=== PATIENT | female | born 1960 | race Caucasian/White ===

== ENCOUNTER 2019-09-18 15:10 | Outpatient (CLI) | payer BC, SELFPAY ==
[2019-09-18 15:31] LABS: Bilirubin Negative (Negative); Blood Trace-intact (Negative); Clarity Cloudy (Clear); Glucose Negative (Negative); Ketones Negative (Negative); Leukocyte Esterase Small (Negative); Nitrite Positive (Negative); Urobilinogen 0.2 EU/dL (Up TO 0.2); pH 6.5 (5-8)
[2019-09-18 15:44] LABS: Bacteria Many HPF (Negative); C & S Indicated? Yes; Casts Negative LPF (Negative); Crystals Negative HPF (Negative); Epithelial Cells Few HPF (Negative); Mucus Trace (Negative); WBC >50 HPF (0-5)
== END 2019-09-18 15:30 ==
PROVIDERS: PCP Specialist/Technologist Athletic Trainer; Visit Provider Nurse Practitioner Family
DX: N39.0 Urinary tract infection, site not specified (principal)
CPT/HCPCS: 87077; 81003; 81015; 87086; 87186

== ENCOUNTER 2020-12-05 15:09 | Outpatient (REF) | payer BC, SELFPAY ==
[2020-12-05 15:44] LABS: Anion Gap 9.6 mmol/L (3-11); BUN 15 mg/dL (7-18); CO2 26.4 mmol/L (21.0-32.0); CREATININE 0.8 mg/dL (0.55-1.02); Calcium 9.1 mg/dL (8.5-10.1); Calculated LDL 131 mg/dL (<100); Chloride 105 mmol/L (98-107); Cholesterol 201 mg/dL (<200); Glucose 95 mg/dL (74-106); HDL Cholesterol 59 mg/dL (40-60); Potassium 4.3 mmol/L (3.5-5.1); Sodium 141 mmol/L (136-145); Triglyceride 59 mg/dL (<150)
== END 2020-12-05 15:10 | disposition home or self-care (01) ==
LOC: NCHCN 15:09
PROVIDERS: PCP Specialist/Technologist Athletic Trainer; Visit Provider Nurse Practitioner Family
DX: Z00.00 Encounter for general adult medical examination without abnormal findings (principal); I10 Essential (primary) hypertension
CPT/HCPCS: 80048; 80061

== ENCOUNTER → 2022-09-30 01:56 | Outpatient (CLI) | payer BC, SELFPAY ==
--- NOTE | 2022-09-30 08:30 | DI.MAMMO_ITS ---
Exam(s) MAMMO SCREENING EXAM: MAMMO SCREENING CLINICAL HISTORY: SCREENING, Z12.31 TECHNIQUE: Bilateral full field digital CC and MLO mammographic images were obtained with 3D tomosyn thesis and utilizing computer aided detection (CAD). COMPARISON: Available for comparison. FINDINGS: Masses/Architectural Distortion: None seen. Microcalcifications: No suspicious pleomorphic-type are seen. Skin Thickening/Nipple Retraction: None. IMPRESSION: 1. No significant interval change with no specific features of malignancy noted. 2. Unless there is more urgent need, screening mammography is recommended, as per [employer] guidelines. BI-RADS Category 1 - Negative Breast Density - Category B - Scattered areas of fibroglandular density Breast density category C or D implies that the patient has dense breast tissue. Dense breast tissue is very common and is not abnormal but dense breast tissue can make it harder to find cancer on a ma mmogram. Also, dense breast tissue may increase their breast cancer risk. This information about the result of the mammogram report was provided to the patient to raise their awareness. Use this report when you speak with the patient about their risks for breast cancer, which includes their family hist ory. At that time, you may recommend for more screening tests (Ultrasound or MRI) as they might be us eful based on their risk. A negative radiographic report should not delay biopsy if a dominant or clinically suspicious mass is present. Up to ten percent of cancers are not identified on mammography. A negative report may reinforce clinical impression. Adenosis and dense breasts may obscure an underlying neoplasm. False positive reports average 6 to 10%. Patient will receive a letter notifying them of these results.
== END ==
PROVIDERS: PCP Specialist/Technologist Athletic Trainer; Visit Provider Nurse Practitioner Family
DX: Z12.31 Encounter for screening mammogram for malignant neoplasm of breast (principal)
CPT/HCPCS: 77063; 77067

== ENCOUNTER 2023-05-30 15:29 | Outpatient (REF) | payer BC, SELFPAY ==
[2023-05-31 14:28] LABS: HCT 38.9 % (36.0-46.0); HGB 13.4 g/dL (11.2-15.7); MCH 29.3 pg (27.0-33.0); MCHC 34.4 % (32.0-36.0); MCV 85 fL (80-95); MPV 10.8 fL (8.0-11.0); Platelet Count 238 10^3/uL (130-400); RBC 4.58 10^6/uL (3.93-5.22); RDW 13.9 % (11.7-14.6); RDW-SD 42.6 fL; WBC 6.53 10^3/uL (4.4-10.8)
[2023-05-31 14:44] LABS: ALT 36 U/L (14-59); AST 18 U/L (15-37); Albumin 3.9 g/dL (3.4-5.0); Alkaline Phosphatase 60 U/L (46-116); Anion Gap 5.3 mmol/L (3-11); BUN 18 mg/dL (7-18); Bilirubin, Total 0.4 mg/dL (0.2-1.0); CO2 29.7 mmol/L (21.0-32.0); CREATININE 0.8 mg/dL (0.55-1.02); Calcium 9.2 mg/dL (8.5-10.1); Calculated LDL 136 mg/dL (<100); Chloride 104 mmol/L (98-107); Cholesterol 214 mg/dL (<200); Estimated GFR 82.23 (mL/min/1.73m2); Glucose 95 mg/dL (74-106); HDL Cholesterol 68 mg/dL (40-60); Potassium 4.2 mmol/L (3.5-5.1); Sodium 139 mmol/L (136-145); Total Protein 6.8 g/dL (6.4-8.2); Triglyceride 53 mg/dL (<150)
== END 2023-05-30 15:30 | disposition home or self-care (01) ==
LOC: NCHCN 15:29
PROVIDERS: PCP Family Medicine; Visit Provider Family Medicine
DX: R10.31 Right lower quadrant pain (principal); R81 Glycosuria; I10 Essential (primary) hypertension; E78.2 Mixed hyperlipidemia; R82.79 Other abnormal findings on microbiological examination of urine
CPT/HCPCS: 80053; 80061; 85027; 83036; 87086

== ENCOUNTER 2023-07-22 19:28 | Outpatient (REF) | payer BC, SELFPAY ==
[2023-07-22 21:25] LABS: COVID-19 PCR Negative (Negative)
[2023-07-22 21:49] LABS: Source Nasal/Nares
== END 2023-07-22 19:29 | disposition home or self-care (01) ==
LOC: LBN 19:28
PROVIDERS: PCP Family Medicine; Visit Provider Physician Assistant Medical
DX: Z20.822 Contact with and (suspected) exposure to COVID-19 (principal); R05.8 Other specified cough
CPT/HCPCS: 87635

== ENCOUNTER 2024-06-07 08:31 | Outpatient (REF) | payer OTHER, SELFPAY ==
--- OUTSIDE RECORDS SUMMARY | 2024-06-07 08:38 | XMS_ITS | Encounter Summary ---
Author Organization [facility] Address [address] [place] [address] Care Team Providers Care Benzol Operator Name Role Phone None, Provider Primary Care Provider Unavailabl e Encounter Details Date Type Department Care Team (Late st Contact Info) Description 11/21/2019 Results Only Imaging [facility] Radiology Results [address] [place] [address] Nidhi Roque, HAND BUTTON SPLITTER [address] [place] [id number] Social History Tobacco Use Types Packs/Day Years Used Date Smoking Tobacco: Never Assessed Sex and Gender Information Value Date Recorded Sex Assigned at Not on file Gender Identity Not on file Sexual Orientation Not on file documented as of this encounter Plan of Treatment Not on file documented as of this encounter Procedures Procedure Name Priority Date/Time Associated Diagnosis Comments MA BREAST SCREENING ANTONINO BILATERAL 11/21/2019 8:50 EST documented in this encounter Results * MA BREAST SCREENING ANTONINO BILATERAL (11/21/2019 8:50 EST) Anatomical Region Laterality Modality Breast Bilateral Mammography 11/21/2019 8:50 EST Narrative 11/21/2019 8:50 EST ? EXAM: MAMMOGRAM/MAMMO BILATERAL SCREEN W ??EX. D/ (1516) ? CLINICAL INFORMATION: ? Z12.31 SCREENING ? INDICATION: Z12.31 SCREENING SCREENING, 2017 (OUTSIDE IMAGES ARE ? HERE) ? COMPARISON: Comparison has been made to previous images. ? TECHNIQUE: ??Full field digital whole breast 2D (C-view) and 3D CC and ? MLO views of both breasts were obtained. CAD technology was utilized. ? FINDINGS: ??The fibroglandular patterns of the breasts are normal. ? There has been no change when compared to previous mammograms and ? there is no mammographic evidence of cancer. There are scattered ? areas of fibroglandular density. ? FINAL ASSESSMENT BILATERAL BREAST: ??BI-RADS Category 1 - Negative. ? Routine mammographic follow-up is recommended. ? These results will be communicated to your patient via a lay letter ? from Radiology. ??If any additional imaging is needed we will contact ? your patient directly. ? REPORT SIGNED IN OTHER VENDOR SYSTEM 11/21/2019 ?Reported By: Warren Brito MD ? CC: ? Transcribed Date/Time: 11/21/2019 (0850) ? Liturgical Music Director: ? Printed Date/Time: 11/21/2019 (1036) ? PAGE 1 ? Signed Report ? Procedure Note Warren Brito MD - 11/21/2019 EXAM: MAMMOGRAM/MAMMO BILATERAL SCREEN W EX. D/ (1516) CLINICAL INFORMATION: Z12.31 SCREENING INDICATION: Z12.31 SCREENING SCREENING, 2017 (OUTSIDE IMAGES ARE HERE) COMPARISON: Comparison has been made to previous images. TECHNIQUE: Full field digital whole breast 2D (C-view) and 3D CCand MLO views of both breasts were obtained. CAD technology wasutilized. FINDINGS: The fibroglandular patterns of the breasts are normal. There has been no change when compared to previous mammograms and there is no mammographic evidence of cancer. There are scattered areas of fibroglandular density. FINAL ASSESSMENT BILATERAL BREAST: BI-RADS Category 1 - Negative. Routine mammographic follow-up is recommended. These results will be communicated to your patient via a lay letter from Radiology. If any additional imaging is needed we willcontact your patient directly. REPORT SIGNED IN OTHER VENDOR SYSTEM 11/21/2019 Reported By: Warren Brito MD CC: Transcribed Date/Time: 11/21/2019 (0850) Liturgical Music Director: Printed Date/Time: 11/21/2019 (0018) PAGE 1 Signed Report Nidhi Roque NP IMG MAMMOGRAPHY ORDE TOMMY documented in this encounter Visit Diagnoses Not on filedocumented in this encounter Care Teams Benzol Operator Relationship Specialty Start Date End Date None, Provider PCP - General 11/19/19 documented as of this encounter
--- OUTSIDE RECORDS SUMMARY | 2024-06-07 08:38 | XMS_ITS | Encounter Summary ---
Author Organization [facility] Address [address] [facility] [address] [facility] [place] [address] Care Team Providers Care Technical Operator Name Role Phone Nidhi Roque APRN Primary Care Provider [phone] Reason for Referral * Consultation (Routine) - Closed Specialty Diagnoses / Procedures Referred By Dasha sánchez Referred To Contact Dermatology Diagnoses Alcieus Nidhi Roque APRN [address] [place] [address] [facility] Dermatology [address] [place] [address] Referral ID Status Reason Start Date Expiration Date V isits Requested Visits Authorized [id number] Closed Consult, Test & Treat PCP Updated and/or Approved 03/28/2023 03/27/2024 6 6 Encounter Details Date Type Department Care Team (Late st Contact Info) Description 03/28/2023 Transcribe Orders eDH Incoming Referrals [phone] Nidhi Roque APRN [address] [place] [address] Nevus Social History Tobacco Use Types Packs/Day Years Used Date Smoking Tobacco: Never Assessed Sex and Gender Information Value Date Recorded Sex Assigned at Not on file Gender Identity Not on file Sexual Orientation Not on file documented as of this encounter Plan of Treatment Scheduled Referrals Name Type Priority Associated Diagnoses Order Schedule Referral to Dermatology Outpatient Referral Routine Nevus Ordered: 03/28/2023 documented as of this encounter Visit Diagnoses Diagnosis Nevus Benign neoplasm of skin, site unspecified documented in this encounter Care Teams Technical Operator Relationship Specialty Start Date End Date Nidhi Roque, MOBILITY SPECIALIST PCP - General Family Medicine 01/07/22 documented as of this encounter
--- OUTSIDE RECORDS SUMMARY | 2024-06-07 08:38 | XMS_ITS | Referral Summary ---
Author Organization [facility] Address [address] [place] [address] Care Team Providers Care Arabic Teacher Name Role Phone None, Provider Primary Care Provider Unavailabl e Allergies Active Allergy Reactions Criticality Noted Date Comments Latex Rash 02/11/2022 Penicillins Rash 02/11/2022 Medications Medication Sig Dispensed Refills Start Date End Date Status losartan (COZAAR) 50 mg tablet Take 50 mg by mouth daily. 02/01/2022 Active Active Problems No known active problems Social History Tobacco Use Types Packs/Day Years Used Date Smoking Tobacco: Never Assessed Interpersonal Safety Answer Date Record ed Physically Hurt Never 05/19/2020 Verbally Threaten Not on file 05/19/2020 Sex and Gender Information Value Date Recorded Sex Assigned at Not on file Gender Identity Not on file Sexual Orientation Not on file Last Filed Vital Signs Vital Sign Reading Time Taken Comments Blood Pressure - - Pulse 80 02/11/2022 1352 EDT Temperature 36.5 ??C (97.7 ??F) 02/11/2022 1352 EDT Respiratory Rate - - Oxygen Saturation 98% 02/11/2022 1352 EDT Inhaled Oxygen Concentration - - Weight - - Height - - Body Mass Index - - Plan of Treatment Not on file Care Teams Arabic Teacher Relationship Specialty Start Date End Date None, Provider PCP - General 11/19/19
--- OUTSIDE RECORDS SUMMARY | 2024-06-07 08:38 | XMS_ITS | Clinical Summary ---
Author Organization [facility] Address [address] [place] [address] Care Team Providers Care Computer Systems Administrator Name Role Phone None, Provider Primary Care [...] on file Sexual Orientation Not on file Obstetrics History Last Filed Vital Signs Vital Sign Reading Time Taken Comments Blood Pressure - - Pulse 80 02/11/2022 1352 EDT Temperature 36.5 ??C (97.7 ??F) 02/11/2022 1352 EDT Respiratory Rate - - Oxygen Saturation 98% 02/11/2022 1352 EDT Inhaled Oxygen Concentration - - Weight - - Height - - Body Mass Index - - Plan of Treatment Health Maintenance Due Date Last Done Comments Hepatitis C Screen 1958 RSV Immunization ( o r 60+ Years) (1 - 1-dose 60+ series) 2018 COVID-19 Vaccine (2022-24 season) 2023 Fall Risk Screening 2023 Care Teams Computer Systems Administrator Relationship Specialty Start Date End Date None, Provider PCP - General 11/19/19
--- OUTSIDE RECORDS SUMMARY | 2024-06-07 08:38 | XMS_ITS | Encounter Summary ---
Author Organization [facility] Address [address] [place] [address] Care Team Providers Care Knitted Goods Shaper Name Role Phone None, Provider Primary Care Provider Unavailabl e Encounter Details Date Type Department Care Team (Latest Contact Info) Description 02/11/2022 Travel Social History Tobacco Use Types Packs/Day Years Used Date Smoking Tobacco: Never Assessed Interpersonal Safety Answer Date Record ed Physically Hurt Never 05/19/2020 Verbally Threaten Not on file 05/19/2020 Sex and Gender Information Value Date Recorded Sex Assigned at Not on file Gender Identity Not on file Sexual Orientation Not on file COVID-19 Exposure Response Date Recorded In the last 10 days, have yo u been in contact with someone who was confirmed or suspected to have Coronavirus/COVID-19? No / Unsure 02/11/2022 13:52 EDT documented as of this encounter Plan of Treatment Not on file documented as of this encounter Visit Diagnoses Not on filedocumented in this encounter Care Teams Knitted Goods Shaper Relationship Specialty Start Date End Date None, Provider PCP - General 11/19/19 documented as of this encounter
--- OUTSIDE RECORDS SUMMARY | 2024-06-07 08:38 | XMS_ITS | Encounter Summary ---
Author Organization [facility] Address [facility] [place] [address] Care Team Providers Care Personal Lines Account Manager Name Role Phone Nidhi Roque IZZY Primary Care Provider [phone] Reason for Visit * Consultation (Routine) - Closed Specialty Diagnoses / Procedures Referred By Dasha sánchez Referred To Contact Dermatology Diagnoses Aliceus WilverluisaNidhi, IZZY [address] [place] [address] [facility] Dermatology [address] [place] [address] Referral ID Status Reason Start Date Expiration Date V isits Requested Visits Authorized [id number] Closed Consult, Test & Treat PCP Updated and/or Approved 03/28/2023 03/27/2024 6 6 Encounter Details Date Type Department Care Team (Late st Contact Info) Description 07/19/2023 8:40 AM EDT Office Visit Dermatology at [facility] [address] [place] [id number] Dylan Aguilar MD [facility] DR ISAI[address] [place] [address] Dermatofibroma; Seborrheic keratoses; Multiple benign nevi Social History Tobacco Use Types Packs/Day Years Used Date Smoking Tobacco: Never Assessed Sex and Gender Information Value Date Recorded Sex Assigned at Not on file Gender Identity Not on file Sexual Orientation Not on file documented as of this encounter Progress Notes * Dylan Aguilar MD - 07/19/2023 8:40 AM EDT Images from the original note were not included. DEPARTMENT OF DERMATOLOGY Medical Dermatology Clinic Note Provider: Dylan Aguilar MD Patient's preferred name Kristie Preferred contact method for results [x]Phone []myD-H []Letter Detailed phone message OK? Yes Are there any other people with whom we may discuss your care? No Past Medical History Date, location, treatment Melanoma No Dysplastic nevi No SCC No BCC No AKs No UV Exposure & Protection N Other relevant past medical history - High blood pressure Family History Details Melanoma Unknown NMSC Unknown Other relevant family history Social History Occupation: quality director [employer] Pre-Procedure Questions Details Allergy to lidocaine, epinephrine, Dermabond, chlorhexidine, or adhesives No Bleeding disorder or blood thinners No Implanted devices (Pacemaker, defibrillator, deep brain stimulator, cochlear implant) No History of Present Illness: Monica Muñiz is a 62 y.o. Patient is referred to the clinic at the request of Nidhi Roque for a full skin exam. Patient reports the following: - Concerning lesion on the left forearm, lesion is asymptomatic per patient. Review of Systems: General: Feeling well. Skin: No other skin concerns. Medications: Reviewed in eD-H Allergies: Reviewed in eD-H Skin Examination: Full skin examination: Patient asked to undress to their comfort level. Verbalized that the provider???s preference is that the patient remove all clothing and that the provider will not examine areas patient elects to keep covered. Patient elects to keep bra and underwear on and have the following examined: scalp, hair, head, face, ears, neck, chest, axillae, abdomen, back, buttocks, and upper and lower extremities. Bra-covered area, genitalia, and buttocks were not examined. Assessment/Plan #. Dermatofibroma - Firm papule, centrally raised and sclerotic, with peripheral hyperpigmentation and dimpling with lateral pressure on the left thigh. - Discussed that these are benign fibrous (scar-like) lesions. No treatment necessary. #. Seborrheic Keratoses - Stuck on, waxy papules on the trunk and extremities (including spot of concern) - Discussed benign nature of lesions and provided reassurance. No treatment necessary at this time. #. Benign Nevi - Scattered medium brown, evenly pigmented macules and papules on the trunk and extremities with reassuring pigment pattern on dermoscopy. - Discussed benign nature of lesions and provided reassurance. Will continue to monitor. #. Solar Lentigines EXAM: Scattered light brown 3-6mm macules on the upper back, chest, bilateral upper and lower extremities - Discussed benign nature with patient Other: N/A RTC: 2 years for FSE []Note routed to cable armorer [x]Recall placed in scheduling system []Appointment scheduled at checkout Scribe attestation: Kwabena Sapp has performed the documentation for this encounter in the presence of and acting as a scribe for Dylan Aguilar MD. I performed the above scribed service and agree with the accuracy of the documentation in this encounter. Reviewed and signed by: Dylan Aguilar MD Dermatology [facility] Patient seen and evaluated with staff earth moving technician: Lake Hurst MD Department of Dermatology [facility] * Lake Hurst MD - 07/19/2023 8:40 AM EDT I directly supervised Dr. Aguilar in the care of this patient. I saw and evaluated this patient with Dr. Aguilar . He presented the history and physical exam details to me, then we saw the patient together and I confirmed these findings. I agree with details as written. My physical examination confirms his findings. The assessment and plan were formulated in discussion with me at the time of visit and I agree withthem as documented. LA[facility] HURST MD [facility] Staff Physician documented in this encounter Plan of Treatment Scheduled Referrals Name Type Priority Associated Diagnoses Order Schedule Referral to Dermatology Outpatient Referral Routine Nevus Ordered: 03/28/2023 documented as of this encounter Visit Diagnoses Diagnosis Dermatofibroma Benign neoplasm of skin, site unspecified Seborrheic keratoses Multiple benign nevi Benign neoplasm of skin, site unspecified documented in this encounter Care Teams Personal Lines Account Manager Relationship Specialty Start Date End Date Nidhi Roque, EQUITY MANAGER PCP - General Family Medicine 01/07/22 documented as of this encounter
--- OUTSIDE RECORDS SUMMARY | 2024-06-07 08:38 | XMS_ITS | Clinical Summary ---
Author Organization [facility] [place] [address] Care Team Providers Care Electronics Worker Name Role Phone Nidhi Roque APRN Primary Care Provider [phone] Social History Tobacco Use Types Packs/Day Years Used Date Smoking Tobacco: Never Assessed Sex and Gender Information Value Date Recorded Sex Assigned at Not on file Gender Identity Not on file Sexual Orientation Not on file Plan of Treatment Health Maintenance Due Date Last Done Comments CT Colonography 1958 Colonoscopy 1958 Colorectal Cancer Screening 1958 FIT DNA 1958 FIT 1958 Sigmoidoscopy (10 year) with FIT yearly 1958 Sigmoidoscopy 1958 HIV screen 1976 Hepatitis C Screening 1976 Tdap adult 1977 Tetanus vaccine 1977 HPV test 1988 PAP Smear 1988 Breast Cancer Share Decision Needed 1998 Breast Cancer screening 1998 Zoster vaccine (1 of 2) 2008 Advance Directive 2013 Covid-19 Vaccine ( - 2022-24 season) 2023 Bone Density Scan 2023 Pneumoccocal Vaccine: 65+ (1 of 1 - PCV) 2023 Influenza (Flu) vaccine (1 o f 1 - Influenza standard series) 06/17/2024 Care Teams Electronics Worker Relationship Specialty Start Date End Date Nidhi Roque APRN PCP - General Family Medicine 01/07/22
--- OUTSIDE RECORDS SUMMARY | 2024-06-07 08:38 | XMS_ITS | Encounter Summary ---
Author Organization [facility] [place] [address] Care Team Providers Care Tankage Grinder Operator Name Role Phone Nidhi Roque APRN Primary Care Provider [phone] Reason for Referral * Consultation (Routine) - Closed Specialty Diagnoses / Procedures Referred By Dasha sánchez Referred To Contact Podiatry Diagnoses Shamir, right Nidhi Roque APRN [address] [place] [address] [facility] [place] [address] Referral ID Status Reason Start Date Expiration Date V isits Requested Visits Authorized [id number] Closed Consult, Test & Treat 01/07/2022 01/07/2023 12 12 Encounter Details Date Type Department Care Team (Late st Contact Info) Description 01/07/2022 Transcribe Orders eDH Incoming Referrals [phone] Nidhi Roque APRN [address] [place] [address] Bunion, right Social History Tobacco Use Types Packs/Day Years Used Date Smoking Tobacco: Never Assessed Sex and Gender Information Value Date Recorded Sex Assigned at Not on file Gender Identity Not on file Sexual Orientation Not on file documented as of this encounter Plan of Treatment Scheduled Referrals Name Type Priority Associated Diagnoses Orde r Schedule Referral to Podiatry Outpatient Referral Routine Bunion, right Ordered: 01/07/2022 documented as of this encounter Visit Diagnoses Diagnosis Bunion, right Bunion documented in this encounter Care Teams Tankage Grinder Operator Relationship Specialty Start Date End Date Nidhi Roque, IZZY PCP - General Family Medicine 01/07/22 documented as of this encounter
--- OUTSIDE RECORDS SUMMARY | 2024-06-07 08:38 | XMS_ITS | Encounter Summary ---
Author Organization [facility] Address [address] [place] [address] Care Team Providers Care Supervisor Wall Mirror Department Name Role Phone None, Provider Primary Care Provider Unavailabl e Reason for Visit * Reason Comments New Patient Visit Pain * Referral (Routine) - Authorization Not Required Specialty Diagnoses / Procedures Referred By Dasha sánchez Referred To Contact Orthopedic Surgery Diagnoses Bunion of right foot Nidhi Roque, [employer] [address] [place] [address] [facility] [address] [place] [address] Referral ID Status Reason Start Date Expiration Date Visits Requested Visits Authorized [id number] Authorization Not Required 1 1 Encounter Details Date Type Department Care Team (Late st Contact Info) Description 02/11/2022 14:00 EDT Office Visit [facility] [address], [address] [place] [address] Cesilia Coon, [facility] [address] [facility] [address] [place] [address] Bunion, right foot (Primary Dx); Hallux rigidus of right foot; Osteoarthritis of first metatarsophalangeal (MTP) joint of right foot; Right foot pain Social History Tobacco Use Types Packs/Day Years [...] 13:52 EDT documented as of this encounter Last Filed Vital Signs Vital Sign Reading Time Taken Comments Blood Pressure - - Pulse 80 02/11/2022 1352 EDT Temperature 36.5 ??C (97.7 ??F) 02/11/2022 1352 EDT Respiratory Rate - - Oxygen Saturation 98% 02/11/2022 1352 EDT Inhaled Oxygen Concentration - - Weight - - Height - - Body Mass Index - - documented in this encounter Patient Instructions * Patient Instructions* Cesilia Coon DPM - 02/11/2022 14:00 EDT Diclofenac gel OTC up to four times a day PRN pain documented in this encounter Progress Notes * Juanita Cortes RN - 02/11/2022 1400 EDT Monica presents today as a new patient for right foot bunion. * Cesilia Coon DPM - 02/11/2022 1400 EDT Moniac Muñiz is being seen as a consultation from Dr. Roque. Chief Complaint Patient presents with ??? Right Foot - New Patient Visit, Pain The primary encounter diagnosis was Bunion, right foot. Diagnoses of Hallux rigidus of right foot, Osteoarthritis of first metatarsophalangeal (MTP) joint of right foot, and Right foot pain were alsopertinent to this visit. HPI 61-year-old female presents today with chief complaint of right foot bunion with large palpable spurring at the first metatarsal phalangeal joint with pain upon activity and range of motion. Patient states she has difficulty wearing certain shoes, anything tight causes more pain as she presents wearing wide slip on boots. Patient does perform range of motion exercises at home which are limited upon dorsiflexion there is mild plantarflexion and she has been able to maintain. History reviewed. No pertinent past medical history. History reviewed. No pertinent surgical history. Social History Tobacco Use ??? Smoking status: Not on file Substance Use Topics ??? Alcohol use: Not on file History reviewed. No pertinent family history. Current Outpatient Medications Medication Sig Dispense Refill ??? losartan (COZAAR) 50 mg tablet Take 50 mg by mouth daily. No current facility-administered medications for this visit. Allergies Allergen Reactions ??? Latex Rash ??? Penicillins Rash Review of Systems Musculoskeletal: Positive for gait problem and joint swelling. Neurological: Negative for numbness. Physical Exam: Ortho Exam limited ROM at the right foot 1st MTPJ with 10 degrees dorsiflexion and 15 degrees plantarflexion with large palpable spurring dorsal 1st metatarsal head, positive Neurologic Exam Protective sensation intact right foot Vascular Exam: DP/PT 2/4 palpable pulses bilateral, positive capillary refill time < 3 secs Bilaterally, positive pedal hair, no varicosities, no telangiectasias, negative venous stasis, negative rubor of dependency Assessment/Plan: 1. Bunion, right foot - XR FOOT RIGHT 3 OR MORE VIEWS Bunion caused from severe osteoarthritis at the MTPJ. 2. Hallux rigidus of right foot I have recommended surgical intervention with arthrodesis at the joint due to the severity of the joint destruction. This would also address the large spurring dorsally and would relieve pressure in her shoes. Patient did ask what would happen is she did not do anything, informed her that she wouldcontinue to have pain until the joint fuses on its own. 3. Osteoarthritis of first metatarsophalangeal (MTP) joint of right foot Reviewed xrays with the patient in detail today and discussed treatment options with include NSAIDS, injections, orthotics,surgery. 4. Right foot pain She has decided that she does not want to seek additional treatments options at this time. She can call for another appointment if she desires treatment. Follow up PRN. Cesilia Coon DPM, [facility] [place], [place] Other Orders Placed This Visit Procedures ??? XR FOOT RIGHT 3 OR MORE VIEWS documented in this encounter Plan of Treatment Not on file documented as of this encounter Procedures Procedure Name Priority Date/Time Associated Diagnosis Comments XR FOOT RIGHT 3 OR MORE VIEWS Routine 02/11/2022 14:06 EDT Bunion, right foot documented in this encounter Results * XR FOOT RIGHT 3 OR MORE VIEWS (02/11/2022 14:06 EDT) Anatomical Region Laterality Modality Lower Extremities Right Computed Radio graphy 02/11/2022 14:5 4 EDT Impressions 02/11/2022 14:54 EDT 1. Great toe MTP joint osteoarthrosis with large marginal osteophytes. 2. Plantar spur. Narrative 02/11/2022 14:54 EDT INDICATION: bunion TECHNIQUE: 3 views right foot. COMPARISON: None. Findings: Great toe advanced joint space narrowing is seen with osteophyte formation. There is a plantar spur. Procedure Note Warren Brito MD - 02/11/2022 INDICATION: bunion TECHNIQUE: 3 views right foot. COMPARISON: None. Findings: Great toe advanced joint space narrowing is seen with osteophyteformation. There is a plantar spur. IMPRESSION 1. Great toe MTP joint osteoarthrosis with large marginal osteophytes. 2. Plantar spur. Cesilia Coon DPM IMG DIAGNOSTIC IMAGI NG ORDERABLES documented in this encounter Visit Diagnoses Diagnosis Bunion, right foot- Primary Bunion Hallux rigidus of right foot Hallux rigidus Osteoarthritis of first metatarsophalangeal (MTP) joint of right foot Right foot pain Pain in limb documented in this encounter Historical Medications * This list may reflect changes made after this encounter. Medication Sig Dispensed Refills Start Date End Date losartan (COZAAR) 50 mg tablet Take 50 mg by mouth daily. 02/01/2022 added in this encounter Care Teams Supervisor Wall Mirror Department Relationship Specialty Start Date End Date None, Provider PCP - General 11/19/19 documented as of this encounter
--- OUTSIDE RECORDS SUMMARY | 2024-06-07 08:38 | XMS_ITS | Encounter Summary ---
Author Organization [facility] [address] Care Team Providers Care Auditor Name Role Phone Nidhi Roque APRN Primary Care Provider [phone] Encounter Details Date Type Department Care Team (Latest Contact Info) Description 07/19/2023 Travel Social History Tobacco Use Types Packs/Day Years Used Date Smoking Tobacco: Never Assessed Sex and Gender Information Value Date Recorded Sex Assigned at Not on file Gender Identity Not on file Sexual Orientation Not on file documented as of this encounter Plan of Treatment Not on file documented as of this encounter Visit Diagnoses Not on filedocumented in this encounter Care Teams Auditor Relationship Specialty Start Date End Date Nidhi Roque APRN PCP - General Family Medicine 01/07/22 documented as of this encounter
[2024-06-07 15:52] LABS: HCT 39.9 % (36.0-46.0); HGB 13.6 g/dL (11.2-15.7); MCH 29.2 pg (27.0-33.0); MCHC 34.1 % (32.0-36.0); MCV 86 fL (80-95); MPV 10.7 fL (8.0-11.0); Platelet Count 265 10^3/uL (130-400); RBC 4.66 10^6/uL (3.93-5.22); RDW 13.6 % (11.7-14.6); RDW-SD 42.3 fL
[2024-06-07 16:00] LABS: Anion Gap 4.7 mmol/L (3-11); BUN 16 mg/dL (7-18); CO2 30.3 mmol/L (21.0-32.0); CREATININE 0.8 mg/dL (0.55-1.02); Calcium 9.6 mg/dL (8.5-10.1); Chloride 105 mmol/L (98-107); Estimated GFR 81.72 (mL/min/1.73m2); Glucose 107 mg/dL (74-106); Potassium 4.9 mmol/L (3.5-5.1); Sodium 140 mmol/L (136-145)
== END 2024-06-07 08:32 | disposition home or self-care (01) ==
LOC: NCHCN 08:31
PROVIDERS: PCP Family Medicine; Visit Provider Family Medicine
DX: I10 Essential (primary) hypertension (principal); R19.5 Other fecal abnormalities
CPT/HCPCS: 80048; 85027

== ENCOUNTER 2024-08-10 08:08 | Day surgery (SDC) | payer OTHER, SELFPAY ==
--- NOTE | 2024-08-09 21:29 | HPE_ITS ---
Date of service: 08/10/24 Time of Service: 09:21 Assessment and Plan Assessment and plan (1) Change in consistency of stool: Status: Acute Assessment and plan: Plan: Colonoscopy w/ general & natural airway. The?patient will be scheduled by my office. Informed consent is obtained for the procedural (explained in simple layman's terms that?the pt and/or family could understand) explaining risks vs benefits and alternatives to the procedure and consequences if we do not do the procedure and need/rational for the procedure. Risks include but are not limited to: bleeding, infection, perforation of colon.? This would necessitate emergency surgery to repair the damage w/ possible ostomy; and other associated complications w/ the required surgery. ? Also complications of anesthesia including aspiration, PA/CVA/, inability to complete the procedure. I discussed with the?patient would they could expect during the procedure, post procedure and recovery time and risks.? The patient understands that they need to have a ride home after the procedure.? T This document was created with voice activated software and may contain errors. 20 mins spent in direct pt care and 15 in non face to face time (2) Blood in stool: Status: Acute History of Present Illness Narrative: Patient is here today for colonoscopy for screening.??? They completed a bowel prep with just a clear yellow residual effluent.? They not having any chest pain or shortness of breath, currently.? They are not experiencing any fever or chills.? They deny any productive cough or upper respiratory tract infection signs or symptoms.? They are not having abdominal pain, or nausea and vomiting.? They have not had any changes in medications, past medical history or past surgical history since previously being seen in the office. They have not had any accidents or have been in the ER since the clinic pre-operative evaluation. ??I reviewed the procedure with the patient today, including risks and benefits of the procedure, and what they could expect at home for recovery.? All questions are answered to the patient?s satisfaction today, and they are stable to proceed with the proposed procedure. Pt seen at the request of PCP regarding colon cancer screening. Pt has had colon cancer screening before.? They denies problems with constipation or diarrhea.? They deny any pain or difficulty with bowel movements, or rectal bleeding.? There is no family history of any colon cancer or colon problems. ? family hx of gastric cancer. Pt has not had any unexplained weight loss.? Their appetite is good.? ?They deny heart, lung, or kidney problems. Occ. having heartburn or indigestion. Thinks it is from BP meds. They have not had any prior colo-rectal surgery.? The patient has had a prior CIERRA-phanentiehl.? They deny any problems with anesthesia in the past. Thinks she may have hemorrhoids. She did have kids. Has blood in stool- it is on the stool. purse framer't say what color it is. fecal test was normal[facility]. Anesthesia: general (without airway) Previous surgical intolerances: No Previous surgical complications: No Pulmonary risk factors: Planned procedure: Yes Sleep apnea risks: No COPD/Asthma/Smoker: not smoker. Can climb one flight of stairs (12-13 steps) in less than 30 seconds without stopping and without symptoms: Yes The surgery proposed for this patient is: low risk Active cardiac conditions: none Active risk factors: none ASA (acetylsalicylic acid): not used Beta blockers: not used Kidneys: no concerns DM: no PA/CVA- no HTN- losaartan ?PSHx T&A Cierra The patient is a 63-year-old female who presents for a consultation for a colonoscopy. She underwent a normal colonoscopy in 2016. Over the past month, she has intermittently noticed what she believes to be blood in her stool, although she is uncertain of its color. A fecal test conducted at [facility] wed no blood. Blood work done there did not indicate anemia or any other abnormalities. She reports no unexplained weight loss or constipation. This summer, she experienced a few episodes of diarrhea, but they were infrequent and did not follow a specific pattern. She has a history of hemorrhoids since childbirth, but they do not cause her significant discomfort. She occasionally experiences heartburn, which she attributes to inadequate water intake rather than food. She does not have diabetes and is not on any blood thinners, including daily aspirin. She takes a low dose of losartan daily for labile blood pressure. She does not take vitamins or other supplements. She has never had a heart attack or stroke and has no history of asthma or sleep apnea. She does not use CPAP or oxygen. She has no known issues with anesthesia but discovered a latex allergy during her hysterectomy. She has no history of appendectomy or cholecystectomy and has never had broken bones requiring plates or screws. She had her tonsils removed at age 3 or 4 and underwent a partial hysterectomy over 20 years ago but still has her ovaries. Review of Systems All systems reviewed & are unremarkable except as noted in HPI and below PFSH All Active Problems Blood in stool (Acute) Change in consistency of stool (Acute) Medical History Pelvic and perineal pain Bunion History of urinary tract infection Glycosuria Abdominal pain Hand pain Pleurisy Elevated blood pressure Lipoma of abdominal wall Surgical History (Updated 08/09/24 @ 11:06 by Jude Azevedo) History of partial hysterectomy Family History Mother Diabetes Heart disease Father No problems noted. Social History Smoking/Tobacco Use Status: Never Smoking risk assessment performed?: Yes Alcohol Intake: never Substance use type: does not use Housing: apartment Do you feel safe at home: Yes Do you feel safe in your relationship?: Yes Additional Social history: lives alone Meds Allergies and Home Medications Allergies Allergy/AdvReac Type Severity Reaction Status Date / Time latex Allergy Severe blisters Verified 08/10/24 08:29 Penicillins Allergy Unknown Skin Rash Verified 08/10/24 08:29 Home Medications ?Medication ?Instructions ?Recorded ?Confirmed ?Type losartan 50 mg tablet 50 mg PO DAILY 06/06/24 08/10/24 History Exam Narrative Exam Narrative: PHYSICAL EXAM GENERAL APPEARANCE: Alert, healthy appearance, oriented, x 3,? in no acute distress HYDRATION: Well hydrated HEAD, EYES, EARS, NECK, THROAT: Head is normocephalic, pupils equal, round, reactive to light and accommodation, ocular movement intact, sclera clear and no jaundice. ?Dentition intact. LUNGS: normal respiration/normal chest excursion. ?Clear to auscultation bilaterally. ?No wheeze. ?HEART: Regular rate and rhythm. no murmur ABDOMEN: soft and non-tender to palpation.? Normal bowel sounds.? Time Spent Time spent with Patient: <40 minutes Time was spent: preparing to see the patient(eg.review tests), obtaining and/or reviewing separately otained hiistory, ordering medications,tests, procedures, referring, communicating with other health patient centered care specialist, indepentently interpreting results, counseling the patient, care coordination and other
--- NOTE | 2024-08-09 21:29 | COLE_ITS ---
Date of service: 08/10/24 Time of Service: 10:16 Colonoscopy Report Date of procedure: 08/10/24 Pre-op diagnosis general: chnage in bowels/blood in stools Post-op diagnosis procedure note: other (Right sided diverticula/area of polypoid change in the anal rectal region) Surgeon: Sue Ricketts Anesthesia Type: General:No Airway Estimated blood loss (mL): 2 Pathology: other Complications: None Disposition: same day Prep: Miralax/Dulcolax Retraction Time: 13 Procedure Description: After informed consent was obtained, explaining risks of the procedure, including but not limits to: bleeding, infections, complications of anesthesia, perforations (which may require antibiotics and /or surgery and stay in the hospital), and abdominal pain/cramping. The patient was taken to the procedure room and placed in a left decubitous position. Monitors were applied and a time out was done. The patients name, date of , procedure, allergies to medications and metal in their body was reviewed. The patient was then sedated. Once sedated and comfortable a rectal exam was done. External exam was normal-no hemorrhoids. Internal exam revealed a normal sphincter tone and no palpable masses. The previously lubricated Olympus scope was then introduced (see RN notes for scope number) and retrofelexed. No internal hemorrhoids were identified. The scope was then advanced to the cecum without difficulty. The TI and ap pendiceal orifice were identified. The scope was then slowly retracted over 13 minutes back into the rectum. Polyps: . Diverticula: pt had a few small mouthed diverticula in the right colon. There were no signs of active bleeding or infection. The mucosa is pink and healthy w/ a normal vascular pattern. In the anal rectal region there is an area from the 3:00 to 8 o'clock position where it is carpeted with an irregular mucosa that looks polypoid. This is examined under NBI eye and appears to be adenomatous. Multiple retail sales representative biopsies are taken. The scope was removed, and the patient was woken up and taken back to Same day surgery in stable condition. The patient tolerated the procedure well and there were no immediate complications. Follow up: The patient should follow up, path pending, unless they develop changes in bowel habits or other new gastrointestinal complaints. [place] Bowel Prep [place] Bowel Prep Right Colon: 3 Left Colon: 3 Transverse Colon: 3 Total Score: 9
--- NOTE | 2024-08-09 21:35 | PDOC.DSDIS_ITS ---
Date of service: 08/10/24 Time of Service: 10:19 Discharge Plan Disposition Patient Disposition: Home Condition: Good Discharge Details Reason For Visit: colon scope Attending Provider: Sue Ricketts Primary Care Provider: Cheyenne Camara Home Meds and New Rx's Prescriptions: No Action losartan 50 mg tablet 50 mg PO DAILY Discharge Instructions Additional Instructions: DSU Colonoscopy Post- Op Instructions Instructions for Everyone who is given Anesthesia: For your safety, please do the following for the next twenty-four (24) hours: *Do Not operate a motor vehicle (car, truck, motorcycle, etc.) *Do Not drink alcoholic beverages or use any recreational drugs for the first 24 hours or while taking pain medications. The medications in your body may have a reaction that can be dangerous. *Do Not make any important decisions or sign any important papers. Findings: Right sided diverticula area of abnormality in anal-rectal region Follow up: Follow-up in 2 to 3 weeks for biopsy results 1. No lifting over 20 pounds or strenuous activity for the first 24 hours after your procedure. After 24 hours there are no restrictions on your activity but you may feel fatigued for a few days. 2. After you arrive home you may have a light meal and return to your normal diet as you can tolerate it without feeling sick to your stomach. 3. You may have a bloated, gaseous feeling in your belly (abdomen) after a colonoscopy. Passing gas and belching will help. Walking or lying down on your left side with your knees flexed may relieve the discomfort. Call the office at [phone] (Office) or [phone] (Hospital) right away if you notice any of the following: a.Vomiting of blood or ?coffee ground stools?. b.Rectal bleeding 1Tbsp, blood clots or continuous bleeding. c.Severe belly (abdominal) pain. d.A hard distended belly (abdomen) and an inability to pass gas. 4. Please don?t expect to have a normal BM (bowel movement) for 2-3 days after your procedure. 5. If there are questions regarding the findings of your procedure, please contact your doctor 6. If you are unable to contact your doctor with a problem, contact the hospital at [phone]. 7. Continue all your regular medications unless directed otherwise. I understand the above instructions and have no questions. Signature of Patient or Adult Escort Name of Responsible Adult Escort Signature of Nurse Date/Time Stand Alone Forms: Anesthesia Discharge Inst., Patric Sal (DSU) Activity:: see above Diet:: see above Discharge Orders Discharge Orders: Discharge Order (Routine); Ordered 08/10/24 Ordered By: Sue Ricketts DS: Diagnosis Discharge Diagnosis (1) Change in consistency of stool: Status: Acute (2) Blood in stool: Status: Acute Asessment and Plan: The patient is seen and examined after their colonoscopy.? The patient has been able to pass gas.? They are not having abdominal pain.? They have been able to tolerate liquids and a snack.? They do not have any nausea or vomiting.? They are not having any chest pain or shortness of breath.??? They are not having any rectal bleeding. Their vital signs have been stable-see nursing notes. We discussed findings during their colonoscopy, and any biopsies that were done/polyps that were removed. The patient will be sent a letter with any biopsy results, and when to repeat the colonoscopy.-see discharge instructions. Patient was given explicit instructions to follow-up regarding colonoscopy-refer to discharge instructions.? We reviewed resumption of medications. Patient verbalized understanding and discharged in stable and satisfactory condition- See nursing notes. (3) Diverticula, colon, congenital: Status: Acute
[2024-08-10 08:31] VITALS: BP 136/90; PULSE 83; RESP 16; TEMP 36.6; O2SAT 98
[2024-08-10] MEDS: Lactated Ringers 500 ML 80 ML IV (08:49)
[2024-08-10 09:18] VITALS: BMI 25.6
--- NOTE | 2024-08-10 09:18 | W.ANESPRE ---
General Info Date of Service Date Performed: 08/10/24 Height: 5 ft 3 in Weight: 65.7 kg Body Mass Index (BMI): 25.6 Surgical Procedure: Operation Date: 08/10/24 09:10 Proposed Procedure Side Surgeon p Colonoscopy Sue Ricketts DO s Possible Hemorrhoid Banding Sue Ricketts DO Meds Allergies and Home Medications Allergies Allergy/AdvReac Type Severity Reaction Status Date / Time latex Allergy Severe blisters Verified 08/10/24 08:29 Penicillins Allergy Unknown Skin Rash Verified 08/10/24 08:29 Home Medication ?Medication ?Instructions ?Recorded losartan 50 mg tablet 50 mg PO DAILY 06/06/24 Current Visit Medications: Current Medications Generic Name Dose Route Start Last Admin Trade Name Freq PRN Reason Stop Dose Admin Hyoscyamine Sulfate 0.125 mg 08/10/24 00:42 Hyoscyamine 0.125 Mg Sl/Oral/Chew SL 09/09/24 00:41 DIRECTED PRN Ringer's Solution 500 mls @ 80 mls/hr 08/10/24 06:00 08/10/24 08:49 IV 08/10/24 23:59 80 mls/hr INFUSION KRISTIN Administration IV Miscellaneous Supplies 1 each 08/10/24 06:00 Iv Access IV 08/10/24 23:59 DIRECTED KRISTIN Ondansetron HCl 4 mg 08/10/24 00:42 Ondansetron 4 Mg/2 Ml Vial IVP 09/09/24 00:41 Q4H PRN PRN Nausea / Vomiting Sodium Chloride 0 ml 08/10/24 06:00 Normal Saline Flush 10 Ml Syr IV 08/10/24 23:59 PRN PRN Sodium Chloride 0 ml 08/10/24 06:00 Normal Saline 10 Ml Vial IJ 08/10/24 23:59 DIRECTED PRN Sterile Water 0 ml 08/10/24 06:00 Water,Injection,Sterile 10 Ml Vial IJ 08/10/24 23:59 DIRECTED PRN PFSH Active Problems Active Problems: Problem Status Onset Code Blood in stool Acute K92.1 Change in consistency of stool Acute R19.5 Medical History Medical History Pelvic and perineal pain Bunion History of urinary tract infection Glycosuria Abdominal pain Hand pain Pleurisy Elevated blood pressure Lipoma of abdominal wall Surgical History Surgical History (Updated 08/09/24 @ 11:06 by Jude Azevedo) History of partial hysterectomy Tobacco Smoking/Tobacco Use Status: Never Alcohol Alcohol Intake: never Substance Use Substance use type: does not use Vital Signs and Lab Results Vital Signs Most Recent Vital Signs in EMR: Most Recent Vital Signs Temp Pulse Resp BP Pulse Ox 36.6 C 83 16 136/90 98 08/10/24 08:31 08/10/24 08:31 08/10/24 08:31 08/10/24 08:31 08/10/24 08:31 Lab Results Blood Type / Crossmatch: No Data to Display Complete Blood Count: No Data to Display Complete Metabolic Panel: No Data to Display Liver Function Panel: No Data to Display Coagulation Panel: No Data to Display Cardiac Panel: No Data to Display Arterial Blood Gas: No Data to Display Venous Blood Gas: No Data to Display Pancreas Panel: No Data to Display Thyroid Panel: No Data to Display Infectious Disease: No Data to Display Blood Cultures: No Data to Display Toxicology Panel: No Data to Display Anesthesia Assessment and Plan Anesthesia History Personal History: No History of Anesthesia Complications Family History: No Family History of Anesthesia Complications Exercise Tolerance Exercise Tolerance: Metabolic Equivalents>4 Pertinent Negatives Pertinent Negatives: No Symptoms of GERD Cardiac & Pulmonary Exam Cardiac Exam: Normal S1/S2 Heart Sounds Pulmonary Exam: Clear Bilateral Breath Sounds Implantable Cardiac Device Does patient have a Pacemaker or an ICD?: No Airway Exam Known Difficult Airway: No Mallampati Class: 2 Mouth Opening: Normal (> 3cm) Thyromental Distance: Greater than 3 cm Neck Range of Motion: Full ROM Neck Circumference: Normal Teeth Condition: Normal Dentition ASA Classification ASA Score: ASA 2 Emergency Case?: No NPO Status NPO Status: NPO Clears >2 hours, Solids >8 hours Anesthesia Plan Resuscitation Status: Full Code Anesthesia Technique: General Anesthesia Airway Planned: Natural Airway Monitors Used: Standard Monitors
--- NOTE | 2024-08-10 09:45 | BOWEL_PTH ---
PATIENT: Monica Muñiz LOC: [facility] U#:[id number] AGE/SX: 63/F ROOM: RE08/10/[address]: Sue Ricketts : 1960 BED: DIS: 08/10/2024 SPEC #: [id number] RECD: 08/10/24 12:59 STATUS: TALI REQ #: [id number] RODERICK: 08/10/24 09:[address]: Sue Ricketts DEPT: Surgical Specimen RECD BY: Judy Pretty ENTERED: 08/10/24 13:01 SP TYPE: Bowel OTHR DR: Cheyenne Camara Tissues: 1 - BIOPSY BOWEL Procedures: GROSS AND MICRO LEVEL 4 IMMUNOPEROXIDASE STAIN Comments: [id number]
[2024-08-10 10:00] VITALS: BP 112/69; PULSE 75; RESP 18; TEMP 36.2; O2SAT 97
--- NOTE | 2024-08-10 10:06 | W.ANESPOSTOP ---
Postoperative Evaluation Date, Time and Location Date Performed: 08/10/24 Time Performed: 10:06 Patient Location: Day Surgery Unit Vital Signs Most Recent Imported Vital Signs: Most Recent Vital Signs Temp Pulse Resp BP Pulse Ox 36.2 C L 75 18 112/69 97 08/10/24 10:00 08/10/24 10:00 08/10/24 10:00 08/10/24 10:00 08/10/24 10:00 Pain Score Most Recent Pain Score: Most Recent Pain Score Pain Level 0 08/10/24 10:00 Assessment Mental Status: Awake (Alert & Oriented to Patient Baseline) Airway and Respiratory Function: Patent airway with normal (patient baseline) respiratory exam Cardiovascular Function: Hemodynamically Stable Hydration Status: Adequately Hydrated Nausea & Vomiting: No Nausea or Vomiting Pain: Pt. Denies Any Pain Peripheral Nerve Block: Patient did not receive a nerve block
[2024-08-10 10:38] VITALS: BP 126/78; PULSE 66; RESP 16; TEMP 36.2; O2SAT 98
== END 2024-08-10 08:09 | disposition home or self-care (01) ==
LOC: SUR 08:10
PROVIDERS: PCP Family Medicine; Visit Provider Surgery
PROC: 0DJD8ZZ Inspection of Lower Intestinal Tract, Via Natural or Artificial Opening Endoscopic (ICD-10-PCS; CPT 45378; principal; 2024-08-10 09:00)
DX: K92.1 Melena; K57.30 Diverticulosis of large intestine without perforation or abscess without bleeding; R85.613 High grade squamous intraepithelial lesion on cytologic smear of anus (HGSIL)
CPT/HCPCS: 45380; 88305; 88361; J2704